=== PATIENT | female | born 1940 | race Two or more races ===

== ENCOUNTER 2018-06-09 12:09 | Inpatient (IN) | payer OTHER ==
[~2018-06-09] VITALS: Ht 157.5 cm; Wt 106.6 kg
[2018-06-22] MEDS ORDERED: LEVO-T25 MCG (12:11)
[2018-06-22] MEDS ORDERED: LOVASTATIN10 MG (12:12)
[2018-06-22] MEDS ORDERED: LOSARTAN-HCTZ1 EACH (12:12)
[2018-06-22] MEDS ORDERED: AMLODIPINE BESYL5 MG (12:12)
[2018-06-22] MEDS ORDERED: VENTOLIN HFA18 GM (12:13)
[2018-06-22] MEDS ORDERED: GABAPENTIN300 MG (12:13)
[2018-06-22] MEDS ORDERED: PANADOL EXTRA500 MG (12:13)
[2018-06-22] MEDS ORDERED: PENTOXIFYLLINE400 MG (12:13)
[2018-06-22] MEDS ORDERED: ZANTAC300 MG (12:13)
[2018-06-29] MEDS ORDERED: DOCUSATE SODIU100 MG PO (15:38)
[2018-06-29] MEDS ORDERED: GABAPENTIN800 MG PO (15:38)
[2018-06-29] MEDS ORDERED: PERCOCET 5-3251 EACH PO (15:39)
[2018-06-29] MEDS ORDERED: AMOX-CLAV 875-1 EACH PO (15:39)
[2018-06-29] MEDS ORDERED: CLONAZEPAM1 MG PO (15:39)
== END 2018-06-30 13:30 | disposition home or self-care (01) | DRG 455 ==
LOC: SURG 06-29 05:10 → O/R 06-29 05:10 → SURH 06-29 11:30 → SURG 06-29 16:43
PROVIDERS: Orthopaedic Surgery Orthopaedic Surgery of the Spine
PROC: 0SG0071 Fusion of Lumbar Vertebral Joint with Autologous Tissue Substitute, Posterior Approach, Posterior Column, Open Approach (ICD-10-PCS; 2018-06-29)
PROC: 0SG00AJ Fusion of Lumbar Vertebral Joint with Interbody Fusion Device, Posterior Approach, Anterior Column, Open Approach (ICD-10-PCS; 2018-06-29)
PROC: 0ST20ZZ Resection of Lumbar Vertebral Disc, Open Approach (ICD-10-PCS; 2018-06-29)
PROC: 07DS3ZZ Extraction of Vertebral Bone Marrow, Percutaneous Approach (ICD-10-PCS; 2018-06-29)
PROC: 0SG00A0 Fusion of Lumbar Vertebral Joint with Interbody Fusion Device, Anterior Approach, Anterior Column, Open Approach (ICD-10-PCS; principal; 2018-06-29 16:00)
DX: M48.061 Spinal stenosis, lumbar region without neurogenic claudication (principal); M51.36 Other intervertebral disc degeneration, lumbar region; M43.16 Spondylolisthesis, lumbar region; I10 Essential (primary) hypertension; E66.01 Morbid (severe) obesity due to excess calories; E03.8 Other specified hypothyroidism